=== PATIENT | male | born 1960 | race Caucasian/White ===

== ENCOUNTER → 2024-02-29 07:06 | Outpatient (REF) | payer OTHER, SELFPAY | LOC: HWRAD 07:06 | PROVIDERS: ATTENDING PHYSICIAN Internal Medicine | DX: R10.11 Right upper quadrant pain (principal) | CPT/HCPCS: 76700 ==

== ENCOUNTER → 2024-08-02 10:30 | Outpatient (REF) | payer OTHER, SELFPAY | LOC: RCS 10:30 | PROVIDERS: ATTENDING PHYSICIAN Internal Medicine Cardiovascular Disease; FAMILY PHYSICIAN Internal Medicine | DX: I48.0 Paroxysmal atrial fibrillation (principal) | CPT/HCPCS: 93017 ==

== ENCOUNTER → 2024-08-17 08:16 | Outpatient (REF) | payer OTHER, SELFPAY | LOC: RCS 08:16 | PROVIDERS: ATTENDING PHYSICIAN Internal Medicine Cardiovascular Disease; FAMILY PHYSICIAN Internal Medicine | DX: I48.0 Paroxysmal atrial fibrillation (principal) | CPT/HCPCS: 93306 ==